=== PATIENT | female | born 1945 | race African-American/Black ===

== ENCOUNTER 2021-12-02 09:26 | Inpatient (IN) | payer OTHER ==
[~2021-12-02 09:26] MED LIST: ONDANSETRON 4 MG/2 ML VIAL IVPUSH PRN
[2021-12-02] MEDS ORDERED: AZITHROMYCIN IVPB 500 MG/250 ML BAG IVPB SCH (10:00)
[2021-12-02] MEDS ORDERED: SODIUM CHLORIDE 0.9% 500 ML INFUS.BAG IV ONE (11:20)
[2021-12-02] MEDS ORDERED: FAMOTIDINE 20 MG/50 ML IVPB 20 MG/50 ML MG IVPB ONE ×2 (11:22→11:40)
[2021-12-02 12:05] LABS: BASO % 0.2 % (0-2.0); EOS % 0.1 % (0-4.5); HEMATOCRIT 36.6 % (32.4-45.2); HEMOGLOBIN 12.2 GM/dL (10.7-15.3); LYMPH % 9.5 % (8-40); MCH 29.1 pg (25.7-33.7); MCHC 33.4 g/dl (32.0-36.0); MEAN CELL VOLUME 87.2 fl (80-96); MEAN PLT VOLUME 6.7 fl (7.5-11.1); MONO % 7.6 % (3.8-10.2); NEUT % 82.6 % (42.8-82.8); PLATELET COUNT 271 10^3/uL (134-434); RDW 15.6 % (11.6-15.6); WHITE BLOOD COUNT 6.7 K/mm3 (4.0-10.0)
[2021-12-02 12:18] LABS: CHLORIDE 105 mmol/L (98-107); SODIUM 140 mmol/L (136-145)
[2021-12-02 12:20] LABS: CALCIUM 8.6 mg/dL (8.5-10.1)
[2021-12-02 12:22] LABS: ALBUMIN 2.6 g/dl (3.4-5.0); ANION GAP 9 MMOL/L (8-16); BLOOD UREA NITROGEN 24.2 mg/dL (7-18); CO2 26 mmol/L (21-32); GLUCOSE,RANDOM 114 mg/dL (74-106)
[2021-12-02 12:24] LABS: CREATININE 1.3 mg/dL (0.55-1.3); PHOSPHOROUS 3.4 mg/dL (2.5-4.9); SGOT/AST 36 U/L (15-37); SGPT/ALT 19 U/L (13-61)
[2021-12-02 12:25] LABS: TOT PROT 6.5 g/dl (6.4-8.2)
[2021-12-02 12:26] LABS: BILIRUBIN,TOTAL 0.5 mg/dL (0.2-1)
[2021-12-02 12:27] LABS: ALK PHOS 56 U/L (45-117)
[2021-12-02] MEDS ORDERED: cefTRIAXone SODIUM 1 GM VIAL IVPB ONE (17:30)
[2021-12-02] MEDS: AZITHROMYCIN IVPB 500 MG/250 ML BAG IVPB SCH (18:10)
[2021-12-03] MEDS: ACETAMINOPHEN 325 MG TABLET (FP) PO PRN ×2 (01:33→21:26)
[2021-12-03] MEDS: SODIUM CHLORIDE 1,000 ML IV SCH ×2 (01:51→21:26)
[2021-12-03 07:40] LABS: HEMATOCRIT 33.8 % (32.4-45.2); HEMOGLOBIN 11.2 GM/dL (10.7-15.3); MCH 29.1 pg (25.7-33.7); MCHC 33.1 g/dl (32.0-36.0); MEAN PLT VOLUME 7.3 fl (7.5-11.1); PLATELET COUNT 265 10^3/uL (134-434); RBC 3.84 M/mm3 (3.60-5.2); RDW 15.4 % (11.6-15.6); WHITE BLOOD COUNT 6.1 K/mm3 (4.0-10.0)
[2021-12-03 07:46] LABS: BLOOD UREA NITROGEN 19.9 mg/dL (7-18)
[2021-12-03 07:49] LABS: CREATININE 1.1 mg/dL (0.55-1.3)
[2021-12-03 09:21] LABS: EPI CELLS 18 /uL (0-25.1); HYALINE CASTS 2 /uL (0-3.1); URINE APPEARANCE CLEAR; URINE BACTERIA 49 /uL (0-1359); URINE BILIRUBIN NEGATIVE (NEGATIVE); URINE COLOR YELLOW; URINE GLUCOSE (UA) NEGATIVE (NEGATIVE); URINE KETONE TRACE (NEGATIVE); URINE LEUK ESTERASE 1+ (NEGATIVE); URINE NITRITE NEGATIVE (NEGATIVE); URINE PROTEIN 1+ (NEGATIVE); URINE RBC 8 /uL (0-23.9); URINE UROBILINOGEN 0.2 mg/dL (0.2-1.0); URINE WBC 83 /uL (0-25.8)
[2021-12-03] MEDS ORDERED: DEXTROSE 5%-WATER - 50 ML IVPB ONE (09:44)
[2021-12-03] MEDS ORDERED: cefTRIAXone SODIUM 1 GM VIAL ONE (09:44)
[2021-12-03] MEDS: CEFTRIAXONE 1 GM in DEXTROSE 5%-WATER - 50 ML IVPB SCH (09:49)
[2021-12-03] MEDS: AZITHROMYCIN IVPB 500 MG/250 ML BAG IVPB SCH (09:50)
[2021-12-03] MEDS: ENOXAPARIN NA (PORCINE) 40 MG/0.4 ML DISP.SYRIN SQ SCH (09:50)
[2021-12-03] MEDS ORDERED: POTASSIUM CHLORIDE TABS 20 MEQ TABLET.ER (FP) PO ONE (12:30)
[2021-12-03 13:07] LABS: MAGNESIUM 1.8 mg/dL (1.8-2.4)
[2021-12-03 13:11] LABS: PHOSPHOROUS 3.3 mg/dL (2.5-4.9)
[2021-12-03 13:15] LABS: N-TERMINAL BNP 143.5 pg/ml (5-450)
[2021-12-03] MEDS: ROSUVASTATIN CA 10 MG TABLET PO SCH (21:26)
[2021-12-04 08:48] LABS: BASO % 0.3 % (0-2.0); EOS % 0.9 % (0-4.5); HEMATOCRIT 31.7 % (32.4-45.2); HEMOGLOBIN 10.6 GM/dL (10.7-15.3); LYMPH % 11.5 % (8-40); MCH 29.2 pg (25.7-33.7); MCHC 33.4 g/dl (32.0-36.0); MEAN CELL VOLUME 87.3 fl (80-96); MEAN PLT VOLUME 7.3 fl (7.5-11.1); MONO % 7.6 % (3.8-10.2); NEUT % 79.7 % (42.8-82.8); PLATELET COUNT 255 10^3/uL (134-434); RBC 3.63 M/mm3 (3.60-5.2); RDW 15.8 % (11.6-15.6); WHITE BLOOD COUNT 5.7 K/mm3 (4.0-10.0)
[2021-12-04] MEDS ORDERED: cefTRIAXone SODIUM 1 GM VIAL ONE (09:22)
[2021-12-04] MEDS ORDERED: DEXTROSE 5%-WATER - 50 ML IVPB ONE (09:22)
[2021-12-04 09:29] LABS: BLOOD UREA NITROGEN 13.5 mg/dL (7-18); CALCIUM 7.4 mg/dL (8.5-10.1); MAGNESIUM 1.7 mg/dL (1.8-2.4)
[2021-12-04 09:33] LABS: CREATININE 0.9 mg/dL (0.55-1.3)
[2021-12-04] MEDS: SODIUM CHLORIDE 1,000 ML IV SCH (09:33)
[2021-12-04] MEDS: AZITHROMYCIN IVPB 500 MG/250 ML BAG IVPB SCH (09:35)
[2021-12-04] MEDS: CEFTRIAXONE 1 GM in DEXTROSE 5%-WATER - 50 ML IVPB SCH (09:35)
[2021-12-04] MEDS: ENOXAPARIN NA (PORCINE) 40 MG/0.4 ML DISP.SYRIN SQ SCH (09:35)
[2021-12-04] MEDS ORDERED: ALBUTEROL SO4 0.083% IH SOL 2.5 MG/3 ML VIAL.NEB. NEB PRN (15:35)
[2021-12-04] MEDS: ALBUTEROL SO4 2.5/IPRATROPIUM 0.5 INH SOL 3 ML VIAL.NEB. NEB SCH ×2 (16:39→21:30)
[2021-12-04] MEDS: ACETAMINOPHEN 325 MG TABLET (FP) PO PRN (17:14)
[2021-12-04] MEDS: ROSUVASTATIN CA 10 MG TABLET PO SCH (21:54)
[2021-12-05] MEDS: ACETAMINOPHEN 325 MG TABLET (FP) PO PRN (01:22)
[2021-12-05] MEDS: SODIUM CHLORIDE 1,000 ML IV SCH (02:59)
[2021-12-05] MEDS: ALBUTEROL SO4 2.5/IPRATROPIUM 0.5 INH SOL 3 ML VIAL.NEB. NEB SCH ×4 (07:36→20:10)
[2021-12-05] MEDS ORDERED: cefTRIAXone SODIUM 1 GM VIAL ONE (09:28)
[2021-12-05] MEDS ORDERED: DEXTROSE 5%-WATER - 50 ML IVPB ONE (09:29)
[2021-12-05] MEDS: CEFTRIAXONE 1 GM in DEXTROSE 5%-WATER - 50 ML IVPB SCH (09:40)
[2021-12-05] MEDS: ENOXAPARIN NA (PORCINE) 40 MG/0.4 ML DISP.SYRIN SQ SCH (09:41)
[2021-12-05] MEDS: AZITHROMYCIN IVPB 500 MG/250 ML BAG IVPB SCH (09:41)
[2021-12-05 11:33] LABS: BASO % 0.4 % (0-2.0); EOS % 0.5 % (0-4.5); HEMATOCRIT 32.2 % (32.4-45.2); HEMOGLOBIN 10.8 GM/dL (10.7-15.3); LYMPH % 11.9 % (8-40); MCH 29.2 pg (25.7-33.7); MCHC 33.7 g/dl (32.0-36.0); MEAN CELL VOLUME 86.8 fl (80-96); MONO % 6.1 % (3.8-10.2); NEUT % 81.1 % (42.8-82.8); PLATELET COUNT 229 10^3/uL (134-434); RBC 3.71 M/mm3 (3.60-5.2); RDW 15.8 % (11.6-15.6); WHITE BLOOD COUNT 5.9 K/mm3 (4.0-10.0)
[2021-12-05 11:41] LABS: CALCIUM 7.7 mg/dL (8.5-10.1)
[2021-12-05 11:42] LABS: BLOOD UREA NITROGEN 9.4 mg/dL (7-18); MAGNESIUM 1.8 mg/dL (1.8-2.4)
[2021-12-05 11:45] LABS: CREATININE 0.8 mg/dL (0.55-1.3)
[2021-12-05 11:46] LABS: BILIRUBIN,TOTAL 0.3 mg/dL (0.2-1); TOT PROT 5.2 g/dl (6.4-8.2)
[2021-12-05 11:51] LABS: ALBUMIN 1.9 g/dl (3.4-5.0)
[2021-12-05] MEDS: methylPREDNISolone NA SUCC 40 MG/1 ML VIAL IVPUSH SCH ×2 (12:53→21:50)
[2021-12-05] MEDS ORDERED: PIPERACILLIN/TAZOBACTAM 4.5 GM VIAL IVPB ONE ×2 (14:12→16:57)
[2021-12-05] MEDS ORDERED: DEXTROSE 5%-WATER 100 ML IVPB ONE ×2 (14:13→16:58)
[2021-12-05] MEDS: PIPERACILLIN/TAZOB 4.5 GM 4.5 GM in DEXTROSE 5%-WATER 100 ML IVPB SCH ×2 (14:21→17:29)
[2021-12-05] MEDS: ROSUVASTATIN CA 10 MG TABLET PO SCH (21:49)
[2021-12-06] MEDS ORDERED: PIPERACILLIN/TAZOBACTAM 4.5 GM VIAL IVPB ONE ×3 (00:55→17:11)
[2021-12-06] MEDS ORDERED: DEXTROSE 5%-WATER 100 ML IVPB ONE ×3 (00:55→17:12)
[2021-12-06] MEDS: PIPERACILLIN/TAZOB 4.5 GM 4.5 GM in DEXTROSE 5%-WATER 100 ML IVPB SCH ×3 (01:03→17:47)
[2021-12-06] MEDS: SODIUM CHLORIDE 1,000 ML IV SCH ×3 (05:47→20:19)
[2021-12-06 07:04] LABS: BASO % 0.1 % (0-2.0); HEMATOCRIT 30.3 % (32.4-45.2); HEMOGLOBIN 10.4 GM/dL (10.7-15.3); LYMPH % 14.5 % (8-40); MCH 29.7 pg (25.7-33.7); MCHC 34.4 g/dl (32.0-36.0); MEAN CELL VOLUME 86.2 fl (80-96); MONO % 6.2 % (3.8-10.2); NEUT % 79.2 % (42.8-82.8); PLATELET COUNT 234 10^3/uL (134-434); RBC 3.51 M/mm3 (3.60-5.2); RDW 15.6 % (11.6-15.6); WHITE BLOOD COUNT 5.4 K/mm3 (4.0-10.0)
[2021-12-06 07:09] LABS: ALBUMIN 1.8 g/dl (3.4-5.0); BLOOD UREA NITROGEN 11.8 mg/dL (7-18); CALCIUM 7.3 mg/dL (8.5-10.1); MAGNESIUM 1.8 mg/dL (1.8-2.4)
[2021-12-06 07:12] LABS: CREATININE 0.9 mg/dL (0.55-1.3)
[2021-12-06 07:14] LABS: BILIRUBIN,TOTAL 0.4 mg/dL (0.2-1); TOT PROT 5.3 g/dl (6.4-8.2)
[2021-12-06] MEDS: ALBUTEROL SO4 2.5/IPRATROPIUM 0.5 INH SOL 3 ML VIAL.NEB. NEB SCH ×4 (07:42→20:40)
[2021-12-06] MEDS: ENOXAPARIN NA (PORCINE) 40 MG/0.4 ML DISP.SYRIN SQ SCH (09:51)
[2021-12-06] MEDS: methylPREDNISolone NA SUCC 40 MG/1 ML VIAL IVPUSH SCH ×2 (09:51→21:31)
[2021-12-06] MEDS ORDERED: LOPERAMIDE HCL 2 MG CAPSULE PO PRN (10:50)
[2021-12-06] MEDS ORDERED: LOPERAMIDE HCL 2 MG CAPSULE PO ONE (11:30)
[2021-12-06] MEDS: PANTOPRAZOLE 40 MG TABLET PO SCH (11:58)
[2021-12-06] MEDS: ROSUVASTATIN CA 10 MG TABLET PO SCH (22:02)
[2021-12-07] MEDS ORDERED: PIPERACILLIN/TAZOBACTAM 4.5 GM VIAL IVPB ONE ×3 (01:02→18:01)
[2021-12-07] MEDS ORDERED: DEXTROSE 5%-WATER 100 ML IVPB ONE ×3 (01:02→18:02)
[2021-12-07] MEDS: PIPERACILLIN/TAZOB 4.5 GM 4.5 GM in DEXTROSE 5%-WATER 100 ML IVPB SCH ×3 (01:10→18:25)
[2021-12-07] MEDS: ALBUTEROL SO4 2.5/IPRATROPIUM 0.5 INH SOL 3 ML VIAL.NEB. NEB SCH ×4 (08:30→20:13)
[2021-12-07] MEDS: PANTOPRAZOLE 40 MG TABLET PO SCH (10:00)
[2021-12-07] MEDS: ENOXAPARIN NA (PORCINE) 40 MG/0.4 ML DISP.SYRIN SQ SCH (10:00)
[2021-12-07] MEDS: methylPREDNISolone NA SUCC 40 MG/1 ML VIAL IVPUSH SCH ×2 (10:00→21:33)
[2021-12-07 12:17] LABS: BASO % 0.2 % (0-2.0); HEMATOCRIT 32.9 % (32.4-45.2); HEMOGLOBIN 10.8 GM/dL (10.7-15.3); LYMPH % 5.4 % (8-40); MCH 28.7 pg (25.7-33.7); MCHC 32.8 g/dl (32.0-36.0); MEAN CELL VOLUME 87.4 fl (80-96); MEAN PLT VOLUME 7.5 fl (7.5-11.1); MONO % 5.9 % (3.8-10.2); NEUT % 88.5 % (42.8-82.8); PLATELET COUNT 300 10^3/uL (134-434); RBC 3.76 M/mm3 (3.60-5.2); RDW 15.8 % (11.6-15.6); WHITE BLOOD COUNT 12.6 K/mm3 (4.0-10.0)
[2021-12-07 12:43] LABS: BLOOD UREA NITROGEN 16.6 mg/dL (7-18); CALCIUM 7.8 mg/dL (8.5-10.1)
[2021-12-07 12:46] LABS: CREATININE 0.9 mg/dL (0.55-1.3)
[2021-12-07 12:48] LABS: BILIRUBIN,TOTAL 0.4 mg/dL (0.2-1); TOT PROT 5.5 g/dl (6.4-8.2)
[2021-12-07] MEDS: LACTOBACILLUS ACIDOPHILUS 1 TABLET PO SCH (14:00)
[2021-12-07] MEDS: ROSUVASTATIN CA 10 MG TABLET PO SCH (21:33)
[2021-12-08] MEDS ORDERED: DEXTROSE 5%-WATER 100 ML IVPB ONE ×3 (00:49→17:12)
[2021-12-08] MEDS ORDERED: PIPERACILLIN/TAZOBACTAM 4.5 GM VIAL IVPB ONE ×3 (00:49→17:12)
[2021-12-08] MEDS: PIPERACILLIN/TAZOB 4.5 GM 4.5 GM in DEXTROSE 5%-WATER 100 ML IVPB SCH ×3 (01:03→17:40)
[2021-12-08 08:02] LABS: CALCIUM 7.7 mg/dL (8.5-10.1)
[2021-12-08 08:03] LABS: ALBUMIN 2.1 g/dl (3.4-5.0); BLOOD UREA NITROGEN 18.2 mg/dL (7-18); CREATININE 0.9 mg/dL (0.55-1.3)
[2021-12-08 08:05] LABS: BILIRUBIN,TOTAL 0.5 mg/dL (0.2-1); TOT PROT 5.2 g/dl (6.4-8.2)
[2021-12-08 08:29] LABS: BASO % 0.1 % (0-2.0); HEMATOCRIT 31.7 % (32.4-45.2); HEMOGLOBIN 10.7 GM/dL (10.7-15.3); LYMPH % 3.8 % (8-40); MCH 29.2 pg (25.7-33.7); MCHC 33.7 g/dl (32.0-36.0); MEAN CELL VOLUME 86.6 fl (80-96); MEAN PLT VOLUME 7.2 fl (7.5-11.1); MONO % 6.2 % (3.8-10.2); NEUT % 89.9 % (42.8-82.8); PLATELET COUNT 290 10^3/uL (134-434); RBC 3.66 M/mm3 (3.60-5.2); RDW 15.7 % (11.6-15.6); WHITE BLOOD COUNT 11.6 K/mm3 (4.0-10.0)
[2021-12-08] MEDS: ALBUTEROL SO4 2.5/IPRATROPIUM 0.5 INH SOL 3 ML VIAL.NEB. NEB SCH ×4 (08:34→20:43)
[2021-12-08] MEDS: PANTOPRAZOLE 40 MG TABLET PO SCH (10:13)
[2021-12-08] MEDS: LACTOBACILLUS ACIDOPHILUS 1 TABLET PO SCH (10:13)
[2021-12-08] MEDS: methylPREDNISolone NA SUCC 40 MG/1 ML VIAL IVPUSH SCH (10:13)
[2021-12-08] MEDS: ENOXAPARIN NA (PORCINE) 40 MG/0.4 ML DISP.SYRIN SQ SCH (10:13)
[2021-12-08] MEDS ORDERED: ACETAMINOPHEN 325 MG TABLET (FP) PO ONE (10:15)
[2021-12-08] MEDS ORDERED: LIDOCAINE 5% TOPICAL PATCH TP ONE (10:15)
[2021-12-08] MEDS: CLOPIDOGREL BISULFATE 75 MG TABLET (FP) PO SCH (17:39)
[2021-12-08] MEDS: ROSUVASTATIN CA 10 MG TABLET PO SCH (21:17)
[2021-12-08] MEDS: ACETAMINOPHEN 325 MG TABLET (FP) PO PRN (21:17)
[2021-12-08] MEDS ORDERED: LIDOCAINE PATCH REMOVAL MC SCH (22:00)
[2021-12-09] MEDS ORDERED: DEXTROSE 5%-WATER 100 ML IVPB ONE ×3 (01:16→17:25)
[2021-12-09] MEDS ORDERED: PIPERACILLIN/TAZOBACTAM 4.5 GM VIAL IVPB ONE ×2 (01:16→09:28)
[2021-12-09] MEDS: PIPERACILLIN/TAZOB 4.5 GM 4.5 GM in DEXTROSE 5%-WATER 100 ML IVPB SCH ×2 (01:21→09:45)
[2021-12-09] MEDS: ALBUTEROL SO4 2.5/IPRATROPIUM 0.5 INH SOL 3 ML VIAL.NEB. NEB SCH ×4 (07:20→20:26)
[2021-12-09 07:54] LABS: BASO % 0.3 % (0-2.0); HEMATOCRIT 37.4 % (32.4-45.2); HEMOGLOBIN 12.5 GM/dL (10.7-15.3); LYMPH % 5.7 % (8-40); MCH 28.8 pg (25.7-33.7); MCHC 33.3 g/dl (32.0-36.0); MEAN CELL VOLUME 86.6 fl (80-96); MEAN PLT VOLUME 7.2 fl (7.5-11.1); MONO % 4.5 % (3.8-10.2); NEUT % 89.5 % (42.8-82.8); PLATELET COUNT 275 10^3/uL (134-434); RBC 4.32 M/mm3 (3.60-5.2); RDW 15.9 % (11.6-15.6); WHITE BLOOD COUNT 11.6 K/mm3 (4.0-10.0)
[2021-12-09 08:11] LABS: BLOOD UREA NITROGEN 16.1 mg/dL (7-18); CALCIUM 7.9 mg/dL (8.5-10.1)
[2021-12-09 08:14] LABS: CREATININE 0.8 mg/dL (0.55-1.3)
[2021-12-09 08:15] LABS: BILIRUBIN,TOTAL 0.4 mg/dL (0.2-1); TOT PROT 5.6 g/dl (6.4-8.2)
[2021-12-09] MEDS ORDERED: FUROSEMIDE 40 MG/4 ML INJECTABLE VIAL IVPUSH ONE ×2 (08:39→17:44)
[2021-12-09 08:49] LABS: ARTERIAL BLD GAS O2 SATURATION 83.3 % (95-98); ARTERIAL BLOOD GAS BASE EXCESS 1.1 mmol/L (-2-2); ARTERIAL BLOOD GAS pH 7.449 (7.350-7.450)
[2021-12-09 08:50] LABS: ALLENS TEST POSITIVE
[2021-12-09] MEDS: CLOPIDOGREL BISULFATE 75 MG TABLET (FP) PO SCH (09:45)
[2021-12-09] MEDS: ENOXAPARIN NA (PORCINE) 40 MG/0.4 ML DISP.SYRIN SQ SCH (09:45)
[2021-12-09] MEDS: LACTOBACILLUS ACIDOPHILUS 1 TABLET PO SCH (09:45)
[2021-12-09] MEDS: PANTOPRAZOLE 40 MG TABLET PO SCH (09:46)
[2021-12-09] MEDS ORDERED: AZITHROMYCIN IVPB 500 MG/250 ML BAG IVPB SCH (10:00)
[2021-12-09] MEDS ORDERED: methylPREDNISolone NA SUCC 40 MG/1 ML VIAL IVPUSH SCH (10:00)
[2021-12-09] MEDS ORDERED: ACETAMINOPHEN 1000 MG/100 ML BAG IVPB STA (14:12)
[2021-12-09] MEDS ORDERED: PANTOPRAZOLE SODIUM 40 MG VIAL IVPUSH STA (15:10)
[2021-12-09] MEDS ORDERED: MEROPENEM 1 GM VIAL (RESTRICTED TO ID) IVPB ONE (17:25)
[2021-12-09] MEDS: MEROPENEM 1 GM in DEXTROSE 5%-WATER 100 ML IVPB SCH (17:27)
[2021-12-09] MEDS: ROSUVASTATIN CA 10 MG TABLET PO SCH (21:35)
[2021-12-10] MEDS ORDERED: DEXTROSE 5%-WATER 100 ML IVPB ONE ×3 (01:27→21:41)
[2021-12-10] MEDS ORDERED: MEROPENEM 1 GM VIAL (RESTRICTED TO ID) IVPB ONE ×3 (01:27→21:41)
[2021-12-10] MEDS: MEROPENEM 1 GM in DEXTROSE 5%-WATER 100 ML IVPB SCH ×3 (01:31→21:46)
[2021-12-10 07:11] LABS: HEMOGLOBIN 12.3 GM/dL (10.7-15.3); MCH 29.6 pg (25.7-33.7); MCHC 34.3 g/dl (32.0-36.0); MEAN CELL VOLUME 86.4 fl (80-96); MEAN PLT VOLUME 7.3 fl (7.5-11.1); PLATELET COUNT 240 10^3/uL (134-434); RBC 4.17 M/mm3 (3.60-5.2); RDW 15.8 % (11.6-15.6); WHITE BLOOD COUNT 10.9 K/mm3 (4.0-10.0)
[2021-12-10 07:30] LABS: CALCIUM 7.7 mg/dL (8.5-10.1)
[2021-12-10] MEDS: ALBUTEROL SO4 2.5/IPRATROPIUM 0.5 INH SOL 3 ML VIAL.NEB. NEB SCH ×4 (07:30→20:41)
[2021-12-10 07:31] LABS: ALBUMIN 1.7 g/dl (3.4-5.0); MAGNESIUM 1.9 mg/dL (1.8-2.4)
[2021-12-10 07:34] LABS: CREATININE 0.8 mg/dL (0.55-1.3)
[2021-12-10 07:35] LABS: BILIRUBIN,TOTAL 0.6 mg/dL (0.2-1); TOT PROT 5.5 g/dl (6.4-8.2)
[2021-12-10] MEDS: ENOXAPARIN NA (PORCINE) 40 MG/0.4 ML DISP.SYRIN SQ SCH (09:05)
[2021-12-10] MEDS: PANTOPRAZOLE SODIUM 40 MG VIAL IVPUSH SCH (09:06)
[2021-12-10] MEDS ORDERED: FUROSEMIDE 40 MG/4 ML INJECTABLE VIAL IVPUSH ONE (09:21)
[2021-12-10] MEDS: KCL 10 MEQ IVPB 10 MEQ/100 ML INFUS.BAG IVPB SCH ×2 (10:03→12:02)
[2021-12-10 10:09] LABS: ANISOCYTOSIS 0; HELMET CELLS 0; HOWELL-JOLLY BODIES 0; MACROCYTOSIS 0; OVALOCYTE 0; ROULEAU 0; SICKELED CELLS 0; TARGET CELLS 0; TEAR DROP CELLS 0; TOXIC GRANULATION 0
[2021-12-10] MEDS ORDERED: LORazepam 2 MG/ML SDV VIAL IVPB ONE (10:40)
[2021-12-10] MEDS: LACTOBACILLUS ACIDOPHILUS 1 TABLET PO SCH (13:03)
[2021-12-10] MEDS: CLOPIDOGREL BISULFATE 75 MG TABLET (FP) PO SCH (13:04)
[2021-12-10] MEDS: ROSUVASTATIN CA 10 MG TABLET PO SCH (21:47)
[2021-12-10] MEDS ORDERED: ACETAMINOPHEN 1000 MG/100 ML BAG IVPB ONE (22:25)
[2021-12-10 23:11] LABS: SARS-CoV-2 NAA Not Detected (Not Detected)
[2021-12-11] MEDS ORDERED: DEXTROSE 5%-WATER 100 ML IVPB ONE ×3 (01:59→17:29)
[2021-12-11] MEDS ORDERED: MEROPENEM 1 GM VIAL (RESTRICTED TO ID) IVPB ONE ×3 (01:59→17:29)
[2021-12-11] MEDS: MEROPENEM 1 GM in DEXTROSE 5%-WATER 100 ML IVPB SCH ×3 (02:12→17:44)
[2021-12-11 07:10] LABS: HEMOGLOBIN 12.2 GM/dL (10.7-15.3); MCH 28.8 pg (25.7-33.7); MCHC 32.9 g/dl (32.0-36.0); MEAN CELL VOLUME 87.8 fl (80-96); MEAN PLT VOLUME 7.9 fl (7.5-11.1); PLATELET COUNT 235 10^3/uL (134-434); RBC 4.22 M/mm3 (3.60-5.2); RDW 15.8 % (11.6-15.6); WHITE BLOOD COUNT 11.6 K/mm3 (4.0-10.0)
[2021-12-11 07:40] LABS: CALCIUM 7.7 mg/dL (8.5-10.1)
[2021-12-11 07:41] LABS: ALBUMIN 1.8 g/dl (3.4-5.0); BLOOD UREA NITROGEN 20.5 mg/dL (7-18); MAGNESIUM 2.2 mg/dL (1.8-2.4)
[2021-12-11 07:45] LABS: TOT PROT 5.6 g/dl (6.4-8.2)
[2021-12-11] MEDS: ALBUTEROL SO4 2.5/IPRATROPIUM 0.5 INH SOL 3 ML VIAL.NEB. NEB SCH ×4 (07:45→20:13)
[2021-12-11 07:46] LABS: BILIRUBIN,TOTAL 0.6 mg/dL (0.2-1)
[2021-12-11 09:12] LABS: ANISOCYTOSIS 1+; MACROCYTOSIS 0
[2021-12-11] MEDS: LACTOBACILLUS ACIDOPHILUS 1 TABLET PO SCH (10:00)
[2021-12-11] MEDS: CLOPIDOGREL BISULFATE 75 MG TABLET (FP) PO SCH (10:00)
[2021-12-11] MEDS: ENOXAPARIN NA (PORCINE) 40 MG/0.4 ML DISP.SYRIN SQ SCH (10:36)
[2021-12-11] MEDS: PANTOPRAZOLE SODIUM 40 MG VIAL IVPUSH SCH (10:37)
[2021-12-11] MEDS: methylPREDNISolone NA SUCC 40 MG/1 ML VIAL IVPUSH SCH ×2 (11:00→17:44)
[2021-12-11] MEDS: DEXTROSE 5%-0.45% SALINE 1,000 ML IV SCH (11:30)
[2021-12-11] MEDS ORDERED: ACETAMINOPHEN 1000 MG/100 ML BAG IVPB ONE (15:24)
[2021-12-11] MEDS ORDERED: DEXMEDETOMIDINE IN 0.9 % NACL 400 MCG/100 ML VIAL IVPB SCH (15:45)
[2021-12-11 17:19] LABS: ARTERIAL BLD GAS O2 SATURATION 90.5 % (95-98); ARTERIAL BLOOD GAS BASE EXCESS 4.4 mmol/L (-2-2); ARTERIAL BLOOD GAS PO2 58.9 mmHg (80-100); ARTERIAL BLOOD GAS pH 7.409 (7.350-7.450)
[2021-12-11 17:22] LABS: ALLENS TEST POSITIVE
[2021-12-11 17:23] LABS: VENT RATE 12
[2021-12-11] MEDS: ROSUVASTATIN CA 10 MG TABLET PO SCH (22:09)
[2021-12-11] MEDS ORDERED: RAPID SEQUENCE INTUBATION KIT NR ONE (22:19)
[2021-12-11 22:49] LABS: ARTERIAL BLD GAS O2 SATURATION 76.8 % (95-98); ARTERIAL BLOOD GAS BASE EXCESS 6.1 mmol/L (-2-2); ARTERIAL BLOOD GAS pH 7.447 (7.350-7.450)
[2021-12-11 22:50] LABS: ALLENS TEST POSITIVE; VENT RATE 12
[2021-12-11 22:52] LABS: ARTERIAL BLOOD GAS PO2 39.9 mmHg (80-100)
[2021-12-11] MEDS: PROPOFOL 1,000,000 MCG/100 ML VIAL IVPB SCH (23:30)
[2021-12-11] MEDS ORDERED: SODIUM CHLORIDE IVPB SCH (23:30)
[2021-12-11] MEDS: MIDAZOLAM IN 0.9 % SOD.CHLORID 100 MG/100 ML PLAST..BAG IVPB SCH (23:30)
[2021-12-11] MEDS ORDERED: FENTANYL IVPB SCH (23:30)
[2021-12-11] MEDS: FENTANYL IVPB SCH (23:50)
[2021-12-11] MEDS: SODIUM CHLORIDE IVPB SCH (23:50)
[2021-12-12] MEDS ORDERED: fentaNYL CITRATE 250 MCG/5 ML VIAL ONE (00:40)
[2021-12-12] MEDS ORDERED: MEROPENEM 1 GM VIAL (RESTRICTED TO ID) IVPB ONE ×3 (01:05→17:06)
[2021-12-12] MEDS ORDERED: DEXTROSE 5%-WATER 100 ML IVPB ONE ×3 (01:06→17:07)
[2021-12-12] MEDS: MEROPENEM 1 GM in DEXTROSE 5%-WATER 100 ML IVPB SCH ×3 (01:07→17:08)
[2021-12-12] MEDS: methylPREDNISolone NA SUCC 40 MG/1 ML VIAL IVPUSH SCH ×3 (01:07→17:08)
[2021-12-12] MEDS ORDERED: SODIUM CHLORIDE 250 ML IV STA (03:32)
[2021-12-12] MEDS ORDERED: SODIUM CHLORIDE 500 ML IV STA ×2 (04:11→04:26)
[2021-12-12] MEDS: DEXMEDETOMIDINE IN 0.9 % NACL 400 MCG/100 ML VIAL IVPB SCH ×2 (04:20→12:53)
[2021-12-12] MEDS ORDERED: FENTANYL NS IVPB 500 MCG/100 ML BAG IVPB ONE (04:24)
[2021-12-12] MEDS ORDERED: VASOPRESSIN 20 UNITS/ML VIAL IV ONE (06:39)
[2021-12-12] MEDS ORDERED: VASOPRESSIN 40 UNITS/100 ML BAG IV SCH (06:45)
[2021-12-12 06:54] LABS: ARTERIAL BLD GAS O2 SATURATION 80.1 % (95-98); ARTERIAL BLOOD GAS BASE EXCESS 0 mmol/L (-2-2); ARTERIAL BLOOD GAS PO2 48.6 mmHg (80-100); ARTERIAL BLOOD GAS pH 7.313 (7.350-7.450)
[2021-12-12 06:57] LABS: ALLENS TEST POSITIVE
[2021-12-12 06:58] LABS: VENT MODE A/C; VENT RATE 20
[2021-12-12 07:14] LABS: ALBUMIN 1.6 g/dl (3.4-5.0); CALCIUM 7.2 mg/dL (8.5-10.1); MAGNESIUM 2.3 mg/dL (1.8-2.4)
[2021-12-12 07:17] LABS: CREATININE 1.3 mg/dL (0.55-1.3)
[2021-12-12 07:19] LABS: BILIRUBIN,TOTAL 0.4 mg/dL (0.2-1); TOT PROT 5.1 g/dl (6.4-8.2)
[2021-12-12 07:27] LABS: HEMOGLOBIN 10.6 GM/dL (10.7-15.3); MCH 28.6 pg (25.7-33.7); MCHC 32.1 g/dl (32.0-36.0); MEAN CELL VOLUME 89.1 fl (80-96); MEAN PLT VOLUME 8.2 fl (7.5-11.1); PLATELET COUNT 205 10^3/uL (134-434); RDW 16.1 % (11.6-15.6); WHITE BLOOD COUNT 16.8 K/mm3 (4.0-10.0)
[2021-12-12] MEDS: ALBUTEROL SO4 2.5/IPRATROPIUM 0.5 INH SOL 3 ML VIAL.NEB. NEB SCH ×4 (08:30→20:10)
[2021-12-12] MEDS ORDERED: ALBUTEROL SO4 2.5/IPRATROPIUM 0.5 INH SOL 3 ML VIAL.NEB. NEB ONE (08:41)
[2021-12-12] MEDS ORDERED: NOREPINEPHRINE BITARTRATE 4 MG/4 ML ML IV ONE (08:45)
[2021-12-12] MEDS: NOREPINEPHRINE BITARTRATE 16,000 MCG in SODIUM CHLORIDE 484 ML IV SCH ×2 (08:48→21:39)
[2021-12-12] MEDS: PANTOPRAZOLE SODIUM 40 MG VIAL IVPUSH SCH (09:40)
[2021-12-12] MEDS: ENOXAPARIN NA (PORCINE) 40 MG/0.4 ML DISP.SYRIN SQ SCH (09:41)
[2021-12-12 09:55] LABS: ARTERIAL BLD GAS O2 SATURATION 93.5 % (95-98); ARTERIAL BLOOD GAS BASE EXCESS 1.1 mmol/L (-2-2); ARTERIAL BLOOD GAS PO2 78.6 mmHg (80-100); ARTERIAL BLOOD GAS pH 7.268 (7.350-7.450)
[2021-12-12 09:57] LABS: ALLENS TEST POSITIVE
[2021-12-12 09:58] LABS: VENT MODE AC; VENT RATE 14
[2021-12-12 10:02] LABS: ANISOCYTOSIS 0; HELMET CELLS 0; HOWELL-JOLLY BODIES 0; MACROCYTOSIS 0; OVALOCYTE 0; ROULEAU 0; SICKELED CELLS 0; TARGET CELLS 0; TEAR DROP CELLS 0; TOXIC GRANULATION 0
[2021-12-12] MEDS: LACTOBACILLUS ACIDOPHILUS 1 TABLET PO SCH (10:24)
[2021-12-12] MEDS: CLOPIDOGREL BISULFATE 75 MG TABLET (FP) PO SCH (10:24)
[2021-12-12] MEDS: DEXTROSE 5%-0.45% SALINE 1,000 ML IV SCH (10:30)
[2021-12-12] MEDS: FENTANYL IVPB SCH (12:15)
[2021-12-12] MEDS: SODIUM CHLORIDE IVPB SCH (12:15)
[2021-12-12] MEDS ORDERED: ROCURONIUM BROMIDE 50 MG/5 ML VIAL IVPUSH ONE (12:30)
[2021-12-12] MEDS: FENTANYL NS IVPB 500 MCG/100 ML BAG IVPB SCH (16:09)
[2021-12-12] MEDS: ROSUVASTATIN CA 10 MG TABLET PO SCH (21:38)
[2021-12-13] MEDS: MIDAZOLAM IN 0.9 % SOD.CHLORID 100 MG/100 ML PLAST..BAG IVPB SCH ×3 (00:05→22:33)
[2021-12-13] MEDS: FENTANYL NS IVPB 500 MCG/100 ML BAG IVPB SCH ×2 (01:00→22:32)
[2021-12-13] MEDS: PROPOFOL 1,000,000 MCG/100 ML VIAL IVPB SCH ×2 (01:00→22:30)
[2021-12-13] MEDS ORDERED: MEROPENEM 1 GM VIAL (RESTRICTED TO ID) IVPB ONE ×3 (01:27→17:15)
[2021-12-13] MEDS ORDERED: DEXTROSE 5%-WATER 100 ML IVPB ONE ×3 (01:28→17:15)
[2021-12-13] MEDS: MEROPENEM 1 GM in DEXTROSE 5%-WATER 100 ML IVPB SCH ×3 (01:40→17:16)
[2021-12-13] MEDS: methylPREDNISolone NA SUCC 40 MG/1 ML VIAL IVPUSH SCH ×3 (01:40→17:17)
[2021-12-13] MEDS: DEXMEDETOMIDINE IN 0.9 % NACL 400 MCG/100 ML VIAL IVPB SCH ×3 (02:05→08:27)
[2021-12-13 07:40] LABS: CALCIUM 7.3 mg/dL (8.5-10.1)
[2021-12-13 07:41] LABS: ALBUMIN 1.5 g/dl (3.4-5.0); BLOOD UREA NITROGEN 42.8 mg/dL (7-18)
[2021-12-13 07:45] LABS: BILIRUBIN,TOTAL 0.3 mg/dL (0.2-1); TOT PROT 5.5 g/dl (6.4-8.2)
[2021-12-13 07:54] LABS: HEMATOCRIT 37.1 % (32.4-45.2); HEMOGLOBIN 11.6 GM/dL (10.7-15.3); MCH 28.7 pg (25.7-33.7); MCHC 31.1 g/dl (32.0-36.0); MEAN CELL VOLUME 92.1 fl (80-96); MEAN PLT VOLUME 7.5 fl (7.5-11.1); PLATELET COUNT 214 10^3/uL (134-434); RBC 4.03 M/mm3 (3.60-5.2); RDW 16.8 % (11.6-15.6); WHITE BLOOD COUNT 26.1 K/mm3 (4.0-10.0)
[2021-12-13] MEDS: ALBUTEROL SO4 2.5/IPRATROPIUM 0.5 INH SOL 3 ML VIAL.NEB. NEB SCH ×4 (08:10→19:51)
[2021-12-13] MEDS ORDERED: DEXMEDETOMIDINE IN 0.9 % NACL 400 MCG/100 ML VIAL IVPB SCH (08:45)
[2021-12-13 09:05] LABS: ANISOCYTOSIS 1+; MACROCYTOSIS 1+
[2021-12-13] MEDS: CLOPIDOGREL BISULFATE 75 MG TABLET (FP) PO SCH ×2 (09:23→10:49)
[2021-12-13] MEDS: LACTOBACILLUS ACIDOPHILUS 1 TABLET PO SCH (09:23)
[2021-12-13] MEDS: AMINO ACIDS/PROTEIN HYDROLYS 30 ML LIQUID.PKT PO SCH (09:23)
[2021-12-13] MEDS: PANTOPRAZOLE SODIUM 40 MG VIAL IVPUSH SCH (09:23)
[2021-12-13] MEDS ORDERED: SODIUM CHLORIDE 0.9% 500 ML INFUS.BAG IV ONE ×2 (11:22→13:51)
[2021-12-13 11:27] LABS: EPI CELLS 19 /uL (0-25.1); HYALINE CASTS 9 /uL (0-3.1); URINE APPEARANCE TURBID; URINE BACTERIA 3 /uL (0-1359); URINE BILIRUBIN NEGATIVE (NEGATIVE); URINE COLOR DK YELLOW; URINE GLUCOSE (UA) NEGATIVE (NEGATIVE); URINE KETONE 1+ (NEGATIVE); URINE LEUK ESTERASE TRACE (NEGATIVE); URINE NITRITE NEGATIVE (NEGATIVE); URINE PROTEIN 2+ (NEGATIVE); URINE UROBILINOGEN 0.2 mg/dL (0.2-1.0); URINE WBC 1101 /uL (0-25.8)
[2021-12-13] MEDS: NOREPINEPHRINE BITARTRATE 16,000 MCG in SODIUM CHLORIDE 484 ML IV SCH ×2 (12:33→18:24)
[2021-12-13 12:34] LABS: URINE RBC 967.2 /uL (0-23.9); YEAST NEGATIVE (NEGATIVE)
[2021-12-13] MEDS ORDERED: VANCOMYCIN/WATER BAGS 1,250 MG/250 ML BAG IVPB ONE (12:47)
[2021-12-13] MEDS: HEPARIN NA (PORCINE) 5,000 UNITS/ML 1ML VIAL SQ SCH ×2 (13:44→22:32)
[2021-12-13 18:09] VITALS: BMI 28.8
[2021-12-13] MEDS: SODIUM CHLORIDE 0.45% 1,000 ML IV SCH (18:48)
[2021-12-13] MEDS: ROSUVASTATIN CA 10 MG TABLET PO SCH (22:32)
[2021-12-14] MEDS ORDERED: MEROPENEM 1 GM VIAL (RESTRICTED TO ID) IVPB ONE ×3 (00:49→18:50)
[2021-12-14] MEDS ORDERED: DEXTROSE 5%-WATER 100 ML IVPB ONE ×3 (00:49→18:50)
[2021-12-14] MEDS: MEROPENEM 1 GM in DEXTROSE 5%-WATER 100 ML IVPB SCH ×3 (01:15→19:01)
[2021-12-14] MEDS: methylPREDNISolone NA SUCC 40 MG/1 ML VIAL IVPUSH SCH ×3 (01:16→19:01)
[2021-12-14] MEDS: PROPOFOL 1,000,000 MCG/100 ML VIAL IVPB SCH ×2 (01:16→23:47)
[2021-12-14] MEDS: VASOPRESSIN 40 UNITS/100 ML BAG IV SCH (02:32)
[2021-12-14] MEDS: DEXMEDETOMIDINE IN 0.9 % NACL 400 MCG/100 ML VIAL IVPB SCH ×3 (05:32→21:21)
[2021-12-14] MEDS: HEPARIN NA (PORCINE) 5,000 UNITS/ML 1ML VIAL SQ SCH ×3 (05:32→21:20)
[2021-12-14 07:02] LABS: HEMATOCRIT 36.9 % (32.4-45.2); HEMOGLOBIN 11.3 GM/dL (10.7-15.3); MCH 29.2 pg (25.7-33.7); MCHC 30.8 g/dl (32.0-36.0); MEAN CELL VOLUME 94.9 fl (80-96); MEAN PLT VOLUME 7.8 fl (7.5-11.1); PLATELET COUNT 163 10^3/uL (134-434); RBC 3.88 M/mm3 (3.60-5.2); RDW 17.4 % (11.6-15.6); WHITE BLOOD COUNT 25.6 K/mm3 (4.0-10.0)
[2021-12-14 07:23] LABS: CHLORIDE 107 mmol/L (98-107); SODIUM 141 mmol/L (136-145)
[2021-12-14 07:28] LABS: ALBUMIN 1.6 g/dl (3.4-5.0); ANION GAP 5 MMOL/L (8-16); BLOOD UREA NITROGEN 51.2 mg/dL (7-18); CO2 29 mmol/L (21-32); GLUCOSE,RANDOM 212 mg/dL (74-106); MAGNESIUM 2.7 mg/dL (1.8-2.4)
[2021-12-14 07:31] LABS: CREATININE 4.5 mg/dL (0.55-1.3); PHOSPHOROUS 8.6 mg/dL (2.5-4.9); SGOT/AST 96 U/L (15-37); SGPT/ALT 29 U/L (13-61)
[2021-12-14 07:33] LABS: BILIRUBIN,TOTAL 0.4 mg/dL (0.2-1); TOT PROT 5.4 g/dl (6.4-8.2)
[2021-12-14 07:37] LABS: ALK PHOS 142 U/L (45-117); CALCIUM 6.9 mg/dL (8.5-10.1)
[2021-12-14] MEDS: ALBUTEROL SO4 2.5/IPRATROPIUM 0.5 INH SOL 3 ML VIAL.NEB. NEB SCH ×6 (07:45→20:06)
[2021-12-14] MEDS ORDERED: CALCIUM GLUC IN NACL, ISO-OSM 1 GM/50 ML BAG IVPB ONE (08:15)
[2021-12-14 08:44] LABS: ANISOCYTOSIS 1+; MACROCYTOSIS 0; PLATELET ESTIMATE DECREASED
[2021-12-14] MEDS ORDERED: SODIUM ZIRCONIUM CYCLOSILICATE (LOKELMA) 5 GM PACKET PO ONE (10:20)
[2021-12-14] MEDS ORDERED: INSULIN REGULAR HUMAN 100 UNITS/ML *VIAL IVPUSH ONE (10:21)
[2021-12-14] MEDS ORDERED: DEXTROSE 50%-WATER - 25 GM/50 ML VIAL IVPUSH ONE (10:21)
[2021-12-14] MEDS: PANTOPRAZOLE SODIUM 40 MG VIAL IVPUSH SCH (10:46)
[2021-12-14] MEDS: AMINO ACIDS/PROTEIN HYDROLYS 30 ML LIQUID.PKT PO SCH (10:46)
[2021-12-14] MEDS: NOREPINEPHRINE BITARTRATE 16,000 MCG in SODIUM CHLORIDE 484 ML IV SCH (10:47)
[2021-12-14] MEDS: CLOPIDOGREL BISULFATE 75 MG TABLET (FP) PO SCH (10:48)
[2021-12-14] MEDS: LACTOBACILLUS ACIDOPHILUS 1 TABLET PO SCH (10:48)
[2021-12-14] MEDS ORDERED: DEXTROSE 50%-WATER 25 GM/50 ML DISP.SYRIN ONE (11:20)
[2021-12-14] MEDS: FLUDROCORTISONE ACETATE 0.1 MG TABLET (FP) PO SCH (11:24)
[2021-12-14] MEDS ORDERED: ROCURONIUM BROMIDE 50 MG/5 ML VIAL IV ONE (12:27)
[2021-12-14 12:46] LABS: ARTERIAL BLD GAS O2 SATURATION 65.7 % (95-98); ARTERIAL BLOOD GAS BASE EXCESS -9.4 mmol/L (-2-2); ARTERIAL BLOOD GAS PO2 55.9 mmHg (80-100)
[2021-12-14] MEDS ORDERED: MINERAL OIL/PETROLATUM,WHITE 3.5 GM TUBE OU PRN (12:53)
[2021-12-14 12:54] LABS: VENT MODE VENT; VENT RATE 14
[2021-12-14] MEDS: VECURONIUM BROMIDE 100 MG/100 ML BAG IVPB SCH (13:54)
[2021-12-14 15:06] LABS: ARTERIAL BLOOD GAS BASE EXCESS -8.9 mmol/L (-2-2); ARTERIAL BLOOD GAS PO2 60.4 mmHg (80-100)
[2021-12-14 15:16] LABS: VENT MODE VENT; VENT RATE 22
[2021-12-14 15:17] LABS: ARTERIAL BLOOD GAS pH 6.923 (7.350-7.450)
[2021-12-14] MEDS ORDERED: SODIUM BICARBONATE 8.4% 50 MEQ/50 ML DISP.SYRIN IVPUSH ONE ×2 (15:23→20:11)
[2021-12-14 15:46] LABS: BLOOD UREA NITROGEN 52.1 mg/dL (7-18); CALCIUM 7.1 mg/dL (8.5-10.1)
[2021-12-14 15:50] LABS: CREATININE 5.1 mg/dL (0.55-1.3)
[2021-12-14] MEDS: FENTANYL NS IVPB 500 MCG/100 ML BAG IVPB SCH (15:52)
[2021-12-14 17:33] LABS: ARTERIAL BLD GAS O2 SATURATION 77.5 % (95-98); ARTERIAL BLOOD GAS BASE EXCESS -9.2 mmol/L (-2-2); ARTERIAL BLOOD GAS PO2 70.6 mmHg (80-100)
[2021-12-14 17:35] LABS: ALLENS TEST POSITIVE; VENT MODE A/C; VENT RATE 24
[2021-12-14 17:37] LABS: ARTERIAL BLOOD GAS pH 6.902 (7.350-7.450)
[2021-12-14 20:05] LABS: ARTERIAL BLD GAS O2 SATURATION 83.9 % (95-98); ARTERIAL BLOOD GAS BASE EXCESS -8.5 mmol/L (-2-2); ARTERIAL BLOOD GAS PO2 68.6 mmHg (80-100)
[2021-12-14 20:07] LABS: ALLENS TEST POSITIVE; VENT MODE A/C; VENT RATE 22
[2021-12-14 20:08] LABS: ARTERIAL BLOOD GAS pH 7.055 (7.350-7.450)
[2021-12-14] MEDS: SODIUM CHLORIDE 0.45% 1,000 ML IV SCH (20:58)
[2021-12-14] MEDS: ROSUVASTATIN CA 10 MG TABLET PO SCH (21:20)
[2021-12-15] MEDS: MIDAZOLAM IN 0.9 % SOD.CHLORID 100 MG/100 ML PLAST..BAG IVPB SCH (00:32)
[2021-12-15] MEDS: ACETAMINOPHEN 325 MG TABLET (FP) PO PRN ×2 (00:36→05:08)
[2021-12-15] MEDS ORDERED: DEXTROSE 5%-WATER 100 ML IVPB ONE ×2 (01:09→10:04)
[2021-12-15] MEDS ORDERED: MEROPENEM 1 GM VIAL (RESTRICTED TO ID) IVPB ONE ×2 (01:09→10:04)
[2021-12-15] MEDS: VASOPRESSIN 40 UNITS/100 ML BAG IV SCH (01:13)
[2021-12-15] MEDS: MEROPENEM 1 GM in DEXTROSE 5%-WATER 100 ML IVPB SCH ×2 (01:14→10:12)
[2021-12-15] MEDS: methylPREDNISolone NA SUCC 40 MG/1 ML VIAL IVPUSH SCH ×2 (01:14→10:12)
[2021-12-15] MEDS: HEPARIN NA (PORCINE) 5,000 UNITS/ML 1ML VIAL SQ SCH (05:08)
[2021-12-15] MEDS: VECURONIUM BROMIDE 100 MG/100 ML BAG IVPB SCH (05:27)
[2021-12-15] MEDS: DEXMEDETOMIDINE IN 0.9 % NACL 400 MCG/100 ML VIAL IVPB SCH ×2 (05:54→13:22)
[2021-12-15 06:58] LABS: ARTERIAL BLD GAS O2 SATURATION 84.6 % (95-98); ARTERIAL BLOOD GAS BASE EXCESS -7.7 mmol/L (-2-2); ARTERIAL BLOOD GAS PO2 65.6 mmHg (80-100); ARTERIAL BLOOD GAS pH 7.114 (7.350-7.450)
[2021-12-15 07:02] LABS: ALLENS TEST POSITIVE
[2021-12-15 07:03] LABS: VENT MODE A/C; VENT RATE 24
[2021-12-15 07:19] LABS: HEMATOCRIT 32.6 % (32.4-45.2); HEMOGLOBIN 10.3 GM/dL (10.7-15.3); MCH 29.5 pg (25.7-33.7); MCHC 31.7 g/dl (32.0-36.0); MEAN PLT VOLUME 8.5 fl (7.5-11.1); PLATELET COUNT 124 10^3/uL (134-434); WHITE BLOOD COUNT 17.7 K/mm3 (4.0-10.0)
[2021-12-15 07:43] LABS: CHLORIDE 104 mmol/L (98-107); SODIUM 140 mmol/L (136-145)
[2021-12-15 07:48] LABS: ALBUMIN 1.5 g/dl (3.4-5.0); ANION GAP 12 MMOL/L (8-16); BLOOD UREA NITROGEN 65.9 mg/dL (7-18); CO2 24 mmol/L (21-32); GLUCOSE,RANDOM 304 mg/dL (74-106); MAGNESIUM 2.6 mg/dL (1.8-2.4)
[2021-12-15 07:51] LABS: PHOSPHOROUS 6.2 mg/dL (2.5-4.9); SGOT/AST 93 U/L (15-37)
[2021-12-15 07:52] LABS: TOT PROT 4.8 g/dl (6.4-8.2)
[2021-12-15] MEDS: SODIUM CHLORIDE 0.45% 1,000 ML IV SCH (07:52)
[2021-12-15 07:53] LABS: BILIRUBIN,TOTAL 0.5 mg/dL (0.2-1)
[2021-12-15 07:55] LABS: ALK PHOS 147 U/L (45-117)
[2021-12-15 07:56] LABS: CALCIUM 6.6 mg/dL (8.5-10.1); SGPT/ALT 30 U/L (13-61)
[2021-12-15] MEDS ORDERED: SODIUM BICARBONATE 8.4% 50 MEQ/50 ML DISP.SYRIN IVPUSH ONE ×2 (08:13→11:49)
[2021-12-15] MEDS ORDERED: CALCIUM GLUC IN NACL, ISO-OSM 1 GM/50 ML BAG IVPB ONE (08:14)
[2021-12-15] MEDS ORDERED: ACETAMINOPHEN 1000 MG/100 ML BAG IVPB PRN (08:45)
[2021-12-15] MEDS: ALBUTEROL SO4 2.5/IPRATROPIUM 0.5 INH SOL 3 ML VIAL.NEB. NEB SCH ×3 (08:50→16:49)
[2021-12-15 09:01] LABS: ANISOCYTOSIS 0; HELMET CELLS 0; HOWELL-JOLLY BODIES 0; MACROCYTOSIS 0; OVALOCYTE 0; ROULEAU 0; SICKELED CELLS 0; TARGET CELLS 0; TEAR DROP CELLS 0; TOXIC GRANULATION 0
[2021-12-15] MEDS: AMINO ACIDS/PROTEIN HYDROLYS 30 ML LIQUID.PKT PO SCH (09:03)
[2021-12-15] MEDS: LACTOBACILLUS ACIDOPHILUS 1 TABLET PO SCH (10:12)
[2021-12-15] MEDS: PANTOPRAZOLE SODIUM 40 MG VIAL IVPUSH SCH (10:12)
[2021-12-15] MEDS: CLOPIDOGREL BISULFATE 75 MG TABLET (FP) PO SCH (10:12)
[2021-12-15] MEDS: FLUDROCORTISONE ACETATE 0.1 MG TABLET (FP) PO SCH (10:13)
[2021-12-15] MEDS ORDERED: SODIUM BICARBONATE 8.4% - 50 ML ONE (11:45)
[2021-12-15] MEDS: FENTANYL NS IVPB 500 MCG/100 ML BAG IVPB SCH (12:03)
[2021-12-15 12:25] VITALS: BP 132/54; TEMP 101.9
[2021-12-15 12:27] LABS: ARTERIAL BLD GAS O2 SATURATION 87.5 % (95-98); ARTERIAL BLOOD GAS BASE EXCESS -4.5 mmol/L (-2-2)
[2021-12-15 12:30] LABS: ARTERIAL BLOOD GAS pH 7.188 (7.350-7.450)
[2021-12-15] MEDS ORDERED: MORPHINE SULFATE/0.9% NACL/PF 100 MG/100 ML BAG IVPB SCH (13:45)
[2021-12-15] MEDS ORDERED: morphine SULFATE 4 MG/ML VIAL IVPUSH ONE (13:45)
[2021-12-15] MEDS ORDERED: SODIUM BICARBONATE 8.4% 50 MEQ/50 ML DISP.SYRIN IVPUSH SCH (14:30)
[2021-12-15] MEDS ORDERED: MORPHINE 100 MG/100 ML MG ONE (14:34)
[2021-12-15 15:12] VITALS: PULSE 99
== END 2021-12-15 15:02 | disposition expired | DRG 207 ==
LOC: JER 09:26 → JERBED 13:39 → J4W 16:28 → JICU 12-09 12:45
PROVIDERS: ADMIT Internal Medicine; ATTEND Internal Medicine Pulmonary Disease
PROC: 5A1955Z Respiratory Ventilation, Greater than 96 Consecutive Hours (ICD-10-PCS; principal; 2021-12-11)
PROC: 0BH17EZ Insertion of Endotracheal Airway into Trachea, Via Natural or Artificial Opening (ICD-10-PCS; 2021-12-11)
PROC: 05HN33Z Insertion of Infusion Device into Left Internal Jugular Vein, Percutaneous Approach (ICD-10-PCS; 2021-12-12)
PROC: B544ZZA Ultrasonography of Left Jugular Veins, Guidance (ICD-10-PCS; 2021-12-12)
DX: J18.9 Pneumonia, unspecified organism (principal); A41.9 Sepsis, unspecified organism; J80 Acute respiratory distress syndrome; N17.0 Acute kidney failure with tubular necrosis; J44.1 Chronic obstructive pulmonary disease with (acute) exacerbation; I24.8 Other forms of acute ischemic heart disease; E87.3 Alkalosis; R19.7 Diarrhea, unspecified; F17.210 Nicotine dependence, cigarettes, uncomplicated; E87.5 Hyperkalemia; I10 Essential (primary) hypertension; E78.5 Hyperlipidemia, unspecified; E83.51 Hypocalcemia; I95.9 Hypotension, unspecified
CPT/HCPCS: 31500; 36415; 36600; 71045-TC-FY; 71250-TC; 80048; 80053; 80061; 81003; 82803; 83605; 83735; 83880; 84100; 84443; 84484; 85025; 85027; 86140; 87040; 87045; 87046; 87070; 87077; 87086; 87205; 87324; 87449; 87804; 87899; 93005; 93010; 93306-TC; 94002; 94010; 94640; 94660; 97116-GP; 97162-GP; 99285-25; C9803-CS; G0480; J1644; J3490; U0003; U0005